=== PATIENT | male | born 1965 | race Two or more races ===

== ENCOUNTER 2017-05-08 13:37 | Emergency (ER) | payer MEDICARE, MEDICAID ==
[~2017-05-08] VITALS: Ht 182.9 cm; Wt 142.9 kg
[~2017-05-08 13:37] MED LIST: AMLO5TAB2 PO; ASPI81CH49 PO; BENA20TA14 PO; FURO40TA4 PO
[2017-05-08 14:50] LABS: Basophils # (auto) 0 uL; Basophils % (auto) 0.3 % (0.0-2.0); CONDITION Y; Eosinophils # (auto) 0 uL; Hematocrit 40.6 % (41.0-53.0); Hemoglobin 13.4 g/dL (13.5-17.5); Lymphocytes # (auto) 0.8 uL; Lymphocytes % (auto) 7.8 % (10.0-50.0); Mean Corpuscular Hemoglobin 29.9 pg (28.0-32.0); Mean Corpuscular Hgb Conc. 32.9 g/dL (32.0-36.0); Mean Corpuscular Volume 90.6 fL (80.0-100.0); Mean Platelet Volume 7.9 fL (7.4-10.4); Monocytes # (auto) 0.8 uL; Neutrophils # (auto) 8.6 uL; Neutrophils % (auto) 83.9 % (37.0-80.0); Platelet Count (auto) 209 10^3/uL (140-450); Red Cell Distribution Width 15.2 % (11.6-16.0); White Blood Cell 10.3 10^3/uL (4.4-10.8)
[2017-05-08] MEDS ORDERED: SODIUM CHLORIDE 0.9% 1,000 ML IV ONE ×2 (15:15)
[2017-05-08 15:42] LABS: Albumin 3.6 g/dL (3.4-5.0); Alkaline Phosphatase 92 U/L (45-117); Anion Gap 8 (5-15); Aspartate Aminotransferase 26 U/L (15-37); BUN/Creatinine Ratio 22.7; Blood Urea Nitrogen 27 mg/dL (7-18); Calcium 8.8 mg/dL (8.5-10.1); Carbon Dioxide 23 mmol/L (21-32); Chloride 117 mmol/L (98-107); GFR African American 82 mL/min; GFR Non-African American 68 mL/min; Glucose 114 mg/dL (74-106); Magnesium 2.3 mg/dL (1.6-2.6); Potassium 3.5 mmol/L (3.5-5.1); Sodium 148 mmol/L (136-145); Total Protein 7.1 g/dL (6.4-8.2)
[2017-05-08] MEDS ORDERED: PIPERACILLIN-TAZOB 3.375GM 100 ML IV ONE (16:00)
[2017-05-08] MEDS ORDERED: LABETALOL HCL 5 MG/ML 4ML SYRINGE IV ONE (16:00)
[2017-05-08] MEDS ORDERED: ENOXAPARIN SOD 100 MG/1 ML SYRINGE SC ONE (16:15)
[2017-05-08 16:46] LABS: B-Type Natriuretic Peptide 877.18 pg/mL (0-100)
[2017-05-08 16:55] VITALS: BP 160/124
[2017-05-08 17:11] LABS: INR 1.36 (0.9-1.15); Partial Thromboplastin Time 25.5 sec (22.64-33.71)
[2017-05-08 17:25] LABS: Prothrombin Time 14.9 sec (9.37-12.3)
[2017-05-08 17:46] LABS: Temperature: 23.3 C (20.0-25.0)
== END 2017-05-08 17:04 | disposition home or self-care (01) ==
LOC: EDBD 13:37 → ER 13:38
DX: I61.9 Nontraumatic intracerebral hemorrhage, unspecified (principal); I48.91 Unspecified atrial fibrillation; R79.89 Other specified abnormal findings of blood chemistry; I10 Essential (primary) hypertension; Z79.899 Other long term (current) drug therapy; Z86.73 Personal history of transient ischemic attack (TIA), and cerebral infarction without residual deficits
CPT/HCPCS: 36415; 70450; 71010; 80053; 80320; 83605; 83735; 83880; 84484; 85025; 85610; 85730; 87040; 93005; 93970; 96361; 96365; 96375; 99285; J1650; J2543; J3490; J7030